=== PATIENT | female | born 1985 | race American Indian/Alaskan Native ===

== ENCOUNTER 2019-10-21 12:00 | Emergency (ER) | payer SELFPAY ==
--- NOTE | 2019-10-21 12:22 | Emergency Department Report ---
Minor Respiratory - HPI Chief Complaint: Upper Respiratory Infection Stated Complaint: CHEST PAIN, FEVER CHILLS Time Seen by Provider: 10/21/19 12:21 Duration: 3 Days Pain Location: Chest Severity: mild Minor Respiratory: Yes Sore Throat, Yes Able to Tolerate Fluids, Yes Cough, Yes Sick Contacts, No Rhinorrhea, No Ear Pain, No Hemoptysis, No Chest Pain, No Shortness of Breath, No Fever Other History: 34 yo aa female who works at [employer] comes in with fatigue, cough, sob for several days. She has had coworkers and customers pos for covid. no fever or chills. ambulatory. non ill non toxic. afebrile. no sputum. not coughing in er. normal vs. no hypoxia. xray to ro [facility] ED Review of Systems ROS: Stated complaint: CHEST PAIN, FEVER CHILLS Other details as noted in HPI Comment: All other systems reviewed and negative ED Past Medical Hx - Past Medical History Previous Medical History?: No - Surgical History Past Surgical History?: No - Family History Family history: no significant - Social History Smoking Status: Current Every Day Smoker Substance Use Type: Marijuana Minor Respiratory Exam - Exam General: Vital signs noted. No distress. Alert and acting appropriately. HEENT: Yes Moist Mucous Membranes, No Pharyngeal Erythema, No Pharyngeal Exudates, No Rhinorrhea, No Conjuctival Injection, No Frontal Tenderness, No Maxillary Tenderness Ear: Neither TM Bulge, Neither TM Erythema, Neither EAC Pain, Neither EAC Discharge Neck: Yes Supple, No Adenopathy Lungs: Yes Good Air Exchange, No Wheezes, No Ronchi, No Stridor, No Cough, No Labored Respirations, No Retractions, No Use of Accessory Muscles, No Other Abnormal Lung Sounds Heart: Yes Regular, No Murmur Abdomen: Yes Normal Bowel Sounds, No Tenderness, No Peritoneal Signs Skin: No Rash, No Edema Neurologic: Alert and oriented, no deficits. Musculoskeletal: Unremarkable. ED Course Vital Signs 10/21/19 12:12 Temperature 98.2 F Pulse Rate 81 Respiratory 16 Rate Blood Pressure 164/112 [Right] O2 Sat by Pulse 100 Oximetry ED Medical Decision Making - Radiology Data Radiology results: report reviewed, image reviewed - Medical Decision Making suspicious for covid vss non toxic bp elevated- pt has no hx. she will monitor xray neg pt educated on covid/social distancing etc will dc home with pcp follow up. Vital Signs 10/21/19 12:12 Temperature 98.2 F Pulse Rate 81 Respiratory 16 Rate Blood Pressure 164/112 [Right] O2 Sat by Pulse 100 Oximetry - Differential Diagnosis ro covid Critical care attestation.: If time is entered above; I have spent that time in minutes in the direct care of this critically ill patient, excluding procedure time. ED Disposition Clinical Impression: Suspected 2019-nCoV infection, Elevated blood pressure reading Disposition: DC-01 TO HOME OR SELFCARE Is pt being admited?: No Does the pt Need Aspirin: No Condition: Stable Instructions: COVID-19, DASH Eating Plan (ED) Additional Instructions: monitor blood pressure tylenol or motrin for pain rest hydrate self isolate 14 days follow up with pcp referral below low salt low fat diet Referrals: PRIMARY CAREMD [Primary Care Provider] - 3-5 Days MO NICOLAS MD [Staff Physician] - 3-5 Days Forms: Work/School Release Form(ED) Time of Disposition: 12:58
--- NOTE | 2019-10-21 12:41 | XRay Report ---
CHEST 2 VIEWS INDICATION: cough. COMPARISON: None FINDINGS: Support devices: None. Heart: Within normal limits. Lungs/pleura: No acute air space or interstitial disease. No pneumothorax. Additional findings: None. IMPRESSION: No acute findings. Signer Name: Tobias Kang Jr, MD Signed: 10/21/2019 12:37 PM Workstation Name: [id number]
[2019-10-21 13:39] VITALS: BP 154/100
== END 2019-10-21 13:15 | disposition home or self-care (01) ==
LOC: ED 12:00
DX: R03.0 Elevated blood-pressure reading, without diagnosis of hypertension (principal); F17.200 Nicotine dependence, unspecified, uncomplicated; F12.90 Cannabis use, unspecified, uncomplicated; Z91.040 Latex allergy status; Z03.818 Encounter for observation for suspected exposure to other biological agents ruled out
CPT/HCPCS: 71046